=== PATIENT | female | born 1970 | race Caucasian/White ===

== ENCOUNTER 2023-03-05 15:25 | Emergency (ER) | payer OTHER ==
[2023-03-05 15:43] VITALS: TEMP 97.8; O2SAT 100
--- NOTE | 2023-03-05 16:26 | ERPHSYRPT ---
- History of Present Illness Source: patient Exam Limitations: no limitations Patient Subjective Stated Complaint: Pt reports she was bowling yesterday and upon releasing the bowling ball she felt something "get hurt" in right outter forearm aligned with antecubital site. She states she knows it isn't bone, she is certain it is tendon or muscle. She went to [facility] last night, they did an xray which she was told was negative and was given toradol. States she can not make a fist or completely straight arm. Pain is reported worse when moving it and no pain when staying still. Triage Nursing Assessment: Pt alert and oriented x3. No apparent respiratory distress. Ambulated to ED cot without difficulty. Skin w/p/d. No obvious deformities/contusions/discoloration to right forearm. Pt able to move all fingers on right hand. APpears to be unable to fully straighten right arm or make fist. Physician History: Pt w R proximal forearm pain which occurred bowling last night. Pain is minimal at rest, and severe when moving. She is R handed and denies other injuries. Pt was seen at [facility] ER last night w neg XR's. She denies other injuries at this time and also denies chest pain/dyspnea. Occurred: yesterday Method of Injury: other (Bowling) Quality: aching Severity of Pain-Max: severe Severity of Pain-Current: mild Extremities Pain Location: arm: right Modifying Factors: Improves With: movement Associated Symptoms: none Allergies/Adverse Reactions: No Known Drug Allergies Allergy (Unverified 03/05/23 15:36) Home Medications: Ergocalciferol (Vitamin D2) [Vitamin D2] 50,000 unit PO WEEKLY 03/05/23 [History] Furosemide 20 mg [Lasix 20 mg] 20 mg PO BID 03/05/23 [History] Gabapentin [Neurontin ] 1 tab PO QID 03/05/23 [History] Potassium Chloride 10 meq PO DAILY 03/05/23 [History] Semaglutide [Ozempic] 0.25 mg PO DAILY 03/05/23 [History] cloNIDine HCL [Clonidine HCl] 0.2 mg PO BID 03/05/23 [History] Hx Tetanus, Diphtheria Vaccination/Date Given: Yes Hx Influenza Vaccination/Date Given: Yes Hx Pneumococcal Vaccination/Date Given: No Travel Risk - International Travel Have you traveled outside of the country in past 3 weeks: No - Coronavirus Screening Are you exhibiting any of the following symptoms?: No Close contact with a COVID-19 positive Pt in past 14-21 Days: No - Vaccine Status Have you recieved a Covid-19 vaccination: Yes 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 - Review of Systems Constitutional: No Symptoms Eyes: No Symptoms Ears, Nose, & Throat: No Symptoms Respiratory: No Symptoms Cardiac: No Symptoms Abdominal/Gastrointestinal: No Symptoms Genitourinary Symptoms: No Symptoms Skin: No Symptoms Neurological: No Symptoms Psychological: No Symptoms Endocrine: No Symptoms Hematologic/Lymphatic: No Symptoms Immunological/Allergic: No Symptoms - Past Medical History Pertinent Past Medical History: Yes Neurological History: No Pertinent History ENT History: No Pertinent History Cardiac History: High Cholesterol, Hypertension Respiratory History: No Pertinent History Endocrine Medical History: No Pertinent History Musculoskeletal History: Arthritis GI Medical History: No Pertinent History History: No Pertinent History Psycho-Social History: No Pertinent History Female Reproductive Disorders: No Pertinent History - Past Surgical History Past Surgical History: Yes Female Surgical History: Section - Social History Smoking Status: Current every day smoker How long have you smoked: 30 yrs Exposure to second hand smoke: Yes Drug Use: none Patient Lives Alone: No - Nursing Vital Signs Nursing Vital Signs: Initial Vital Signs Temperature 97.8 F 03/05/23 15:30 Pulse Rate 98 H 03/05/23 15:30 Respiratory Rate 18 03/05/23 15:30 Blood Pressure 177/97 03/05/23 15:30 O2 Sat by Pulse Oximetry 100 03/05/23 15:30 Pain Scale Pain Intensity 5 Hypertensive - Physical Exam General Appearance: no apparent distress Eyes, Ears, Nose, Throat Exam: normal ENT inspection, TMs normal, pharynx normal, moist mucous membranes Neck Exam: normal inspection, non-tender, supple, full range of motion, No Brudzinski, No Kernig's, No meningismus Cardiovascular/Respiratory Exam: normal breath sounds, regular rate/rhythm, heart sounds normal Abdominal Exam: non-tender, soft Back Exam: normal inspection, normal range of motion, No CVA tenderness, No vertebral tenderness Shoulder Exam: normal inspection, non-tender, no evidence of injury, normal ROM Elbow/Forearm Exam: pain (TTP R proximal, dorsal forearm/Minimal edema/Good radial pulse, distal sensation, and capillary return) Hand Exam: normal inspection, non-tender, no evidence of injury DTR - Upper Extremity Exam: bicep (R): 2+, bicep (L): 2+ Neuro/Tendon Exam: normal sensation, responds to pain, No sensory deficit Mental Status Exam: alert, oriented x 3, cooperative Skin Exam: normal color, warm, dry SpO2 Interpretation: normal SpO2: 100 O2 Delivery: Room Air - Course Nursing assessment & vital signs reviewed: Yes - Progress Progress Note: 03/05/23 16:46 Nursing note and vital signs reviewed No food or housing insecurities noted Pt refused XR's since they were done at [facility] last night Pt refused all pain meds Pt most likely has a R proximal forearm extensor strain and will follow up with ortho clinic in AM Lakhwinder wrap R elbow/forearm per nursing NVI Sling RUE per nursing/NVI Counseled pt/family regarding: diagnosis, need for follow-up Medical Desision Making - Risk of complications Low Risk: Low risk of morbidity from additional dx testing or treatment - Departure Departure Disposition: Home Clinical Impression: Strain of right forearm Condition: Stable Critical Care Time: No Referrals: CASSIUS FLOWERS NP [Primary Care Provider] - Follow up/PCP as directed ORTHO - JERROD ROWE NP [NON-STAFF PHY W/O PRIVILEGES] - Follow up/PCP as directed Instructions: Muscle strain Additional Instructions: Lakhwinder wrap for 2-3 days Follow up in Ortho clinic 8-10AM tomorrow Continue w prescribed pain meds Rest/Ice today
[2023-03-05 16:44] VITALS: BP 150/86; PULSE 86; RESP 19
== END 2023-03-05 16:42 | disposition home or self-care (01) ==
LOC: ED 15:25
DX: S56.511A Strain of other extensor muscle, fascia and tendon at forearm level, right arm, initial encounter (principal); X50.9XXA Other and unspecified overexertion or strenuous movements or postures, initial encounter; Y93.54 Activity, bowling; Y92.39 Other specified sports and athletic area as the place of occurrence of the external cause; E78.5 Hyperlipidemia, unspecified; I10 Essential (primary) hypertension; Z79.85 Long-term (current) use of injectable non-insulin antidiabetic drugs; Z79.899 Other long term (current) drug therapy; Z72.0 Tobacco use
CPT/HCPCS: 99282